=== PATIENT | male | born 1975 | race Two or more races ===

== ENCOUNTER 2017-12-27 08:21 | Emergency (ER) | payer SELFPAY ==
--- NOTE | 2017-12-27 09:21 | ER Document Report ---
HPI - HPI Patient complains to provider of: left foot pain Onset: Other - 6 days Onset/Duration: Persistent Quality of pain: Achy, Other - sore Severity: Severe Pain Level: 4 Context: Patient presents emergency department with complaints of left foot pain that started approximately 6 days ago. Patient denies injury. 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 He wears sneakers, reports his feet get wet often. Patient reports hurts more when he stands up first thing in the morning but he still has constant pain all day. Denies other symptoms such as fever vomiting diarrhea. Reports this never happened to him before. Associated Symptoms: None Exacerbated by: Standing, Walking Relieved by: Denies Similar symptoms previously: No Recently seen / treated by doctor: No Past Medical History - General Information source: Patient - Social History Smoking Status: Unknown if Ever Smoked Cigarette use (# per day): No Frequency of alcohol use: Occasional Drug Abuse: None Occupation: roadway Family History: DM - father Patient has suicidal ideation: No Patient has homicidal ideation: No - Medical History Medical History: Negative Surgical Hx: Negative Vertical Provider Document - CONSTITUTIONAL Agree With Documented VS: Yes Exam Limitations: No Limitations General Appearance: WD/WN, Mild Distress - winces when heel palpated, ambulates without limp - INFECTION CONTROL TRAVEL OUTSIDE OF THE [place] IN LAST 30 DAYS: No - HEENT HEENT: Atraumatic, Normocephalic - NECK Neck: Supple - RESPIRATORY Respiratory: No Respiratory Distress - CARDIOVASCULAR Cardiovascular: Regular Rate - MUSCULOSKELETAL/EXTREMETIES Musculoskeletal/Extremeties: MAEW, FROM, Tender - left heel, no erythema, no warmth, no obvious deformity, no swelling.good pedal pulse, + cap refill <3 sec - NEURO Level of Consciousness: Awake, Alert, Appropriate Motor/Sensory: No Motor Deficit - DERM Integumentary: Warm, Dry, No Rash - no s/s fungal infection. negative: Rash Adult Front & Back Diagram: 1 - report plantar heel pain when palpated Course - Vital Signs Vital signs: Temp Pulse Resp BP Pulse Ox 98.8 F 76 14 146/94 H 96 12/27/17 08:26 12/27/17 08:26 12/27/17 08:26 12/27/17 08:26 12/27/17 08:26 - Diagnostic Test Radiology reviewed: Image reviewed, Reports reviewed - Diagnostic report text EXAM DESCRIPTION: FOOT LEFT COMPLETE COMPLETED DATE/TIME: 2017 9:24 am REASON FOR STUDY: foot pain COMPARISON: None. NUMBER OF VIEWS : Three views. TECHNIQUE: AP, lateral and oblique radiographic images acquired of the left foot. LIMITATIONS: None. FINDINGS: MINERALIZATION: Normal. BONES: No acute fracture or dislocation. No worrisome bone lesions. JOINTS: No effusions. SOFT TISSUES: No soft tissue swelling. No foreign body. OTHER: No other significant finding. IMPRESSION: NEGATIVE STUDY OF THE LEFT FOOT. NO RADIOGRAPHIC EVIDENCE OF ACUTE INJURY Discharge - Discharge Clinical Impression: Left foot pain Condition: Stable Disposition: HOME, SELF-CARE Instructions: Exercises for the Foot Muscles ([facility]), Ice Packs ([facility]), Plantar Fasciitis or Heel Spur ([facility]) Additional Instructions: *You have been evaluated for left foot pain, suspect plantar fasciitis *do foot exercises as discussed *Rest/Ice your foot *Follow up with payroll accounting manager for continued pain-call for an appointment *Take ibuprofen as indicated *Return to ED for worsening condition, changes, needs Forms: Elevated Blood Pressure
--- NOTE | 2017-12-27 09:32 | RADIOLOGY REPORT (SQ) ---
EXAM DESCRIPTION: FOOT LEFT COMPLETE COMPLETED DATE/TIME: 12/27/2017 9:24 am REASON FOR STUDY: foot pain COMPARISON: None. NUMBER OF VIEWS: Three views. TECHNIQUE: AP, lateral and oblique radiographic images acquired of the left foot. LIMITATIONS: None. FINDINGS: MINERALIZATION: Normal. BONES: No acute fracture or dislocation. No worrisome bone lesions. JOINTS: No effusions. SOFT TISSUES: No soft tissue swelling. No foreign body. OTHER: No other significant finding. IMPRESSION: NEGATIVE STUDY OF THE LEFT FOOT. NO RADIOGRAPHIC EVIDENCE OF ACUTE INJURY. TECHNICAL DOCUMENTATION: JOB ID: [id number]- All Rights Reserved Reading location - IP/workstation name: [email or web address]
[2017-12-27] MEDS ORDERED: IBUPROFEN 800 MG TABLET PO ONE (09:41)
[2017-12-27 10:17] VITALS: BP 143/89
== END 2017-12-27 10:15 | disposition home or self-care (01) ==
LOC: ER 08:21
DX: M79.672 Pain in left foot (principal)
CPT/HCPCS: 99283